=== PATIENT | female | born 1960 | race Hispanic/Latino ===

== ENCOUNTER 2018-09-08 15:40 | Outpatient (CLI) | payer BC | END 2018-09-08 15:41 | disposition home or self-care (01) | LOC: BICMAMMO 15:40 | PROVIDERS: ATTEND Family Medicine | DX: Z12.31 Encounter for screening mammogram for malignant neoplasm of breast (principal); R92.1 Mammographic calcification found on diagnostic imaging of breast | CPT/HCPCS: 77063; 77067 ==

== ENCOUNTER 2021-01-06 09:03 | Outpatient (CLI) | payer BC ==
--- NOTE | 2021-01-06 11:06 | MRI ---
THORACIC SPINE MRI WITHOUT CONTRAST: HISTORY: T11 compression fracture. Pain. FINDINGS: There is appropriate T1 marrow signal intensity of the thoracic vertebrae from T1 through T10 and at T12. At T11, there is mixed T1 and T2 signal intensity with STIR hyperintensity suggesting a subacute mild compression fracture. There is mild retropulsion. Visualized mediastinum, lung parenchyma and solid organs of appropriate signal intensity. There is mi nimal posttraumatic change in the paraspinal soft tissues at T11 and T12. The thoracic cord has a normal size and signal intensity. No cord expansion or cord malacia. Conus me dullaris terminates at the superior aspect of L1. Throughout the thoracic spine, disc space heights are essentially preserved. There is no significant central canal stenosis. There is mild retropulsion at T11 with mild central canal stenosis. Throughout the thoracic spine, neural foramina are patent. IMPRESSION: Subacute T11 compression fracture with mild loss of vertebral body height and mild retropulsion. Transcribed Date/Time: 01/06/2021 2:29 PM
--- NOTE | 2021-01-06 11:33 | MRI ---
MRI LUMBAR SPINE NONCONTRAST: HISTORY: T11 compression fracture. Lumbar radiculopathy. Symptoms radiate down the left leg. Pain. COMPARISON: 02/10/2012. FINDINGS: There is a subacute T11 compression fracture. The remaining distal thoracic and lumbar vertebrae have appropriate T1 marrow signal intensity. No fracture. No significant STIR hyperintensity to suggest ligamentous injury or vertebral body edema. Appropriate signal intensity in the visualized paraspinal muscles and solid organs. Conus medullaris terminates at the superior aspect of L1. T12-L1:Adequate disc hydration. No posterior disc abnormality. No significant central canal stenosis or significant neural foraminal narrowing. L1-L2:Minimal desiccation without significant loss of disc space height. Left paracentral disc hernia tion. Mild central canal stenosis. Patent bilateral neural foramina. L2-L3:Minimal disc desiccation at L2-L3. There is a central annular fissure without significant poste rior disc herniation. No significant central canal stenosis. Patent bilateral neural foramina. L3-L4:Adequate disc hydration. No significant posterior disc abnormality. There is mild ligament flav um thickening and facet hypertrophy. No significant central canal stenosis. Mild right foraminal narrowing due to disc material. Patent left neural foramen. L4-L5:Interval desiccation without significant loss of disc space height. Broad-based disc bulge mini jim flattens the ventral thecal sac. Mild ligamentum flavum thickening and facet hypertrophy. No significant central canal stenosis. Patent bilateral neural foraminal. L5-S1:Adequate disc hydration. No significant central canal stenosis or significant neural foraminal narrowing. 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 IMPRESSION: 1. Subacute T11 compression fracture. 2. Left paracentral disc herniation at L1-L2. Disc herniation has progressed since the previous exam. 3. Small annular fissure along the posterior disc space at L2-L3. Transcribed Date/Time: 01/06/2021 2:32 PM
== END 2021-01-06 09:04 | disposition home or self-care (01) ==
LOC: BICMRI 09:03
PROVIDERS: ATTEND Nurse Practitioner Family
DX: M51.16 Intervertebral disc disorders with radiculopathy, lumbar region (principal); S22.080A Wedge compression fracture of T11-T12 vertebra, initial encounter for closed fracture
CPT/HCPCS: 72146; 72148